=== PATIENT | male | born 1990 | race Two or more races ===

== ENCOUNTER 2018-03-24 19:30 | Emergency (ER) | payer OTHER ==
[~2018-03-24] VITALS: Ht 185.4 cm; Wt 117.9 kg
[2018-03-24 19:45] VITALS: BP 135/73
== END 2018-03-24 23:35 | disposition left against medical advice (07) ==
LOC: ER 19:30
DX: M54.9 Dorsalgia, unspecified (principal); Z53.21 Procedure and treatment not carried out due to patient leaving prior to being seen by health care provider

== ENCOUNTER 2019-04-06 14:37 | Emergency (ER) | payer OTHER ==
[~2019-04-06] VITALS: Ht 185.4 cm; Wt 122.5 kg
[2019-04-06 14:58] VITALS: BP 154/66
== END 2019-04-06 17:10 | disposition left against medical advice (07) ==
LOC: ER 14:37
DX: S93.401A Sprain of unspecified ligament of right ankle, initial encounter (principal); R03.0 Elevated blood-pressure reading, without diagnosis of hypertension; Z90.89 Acquired absence of other organs; W22.8XXA Striking against or struck by other objects, initial encounter; Y93.89 Activity, other specified; Y99.8 Other external cause status; Y92.89 Other specified places as the place of occurrence of the external cause
CPT/HCPCS: 73610

== ENCOUNTER 2019-04-08 10:29 | Emergency (ER) | payer OTHER ==
[~2019-04-08] VITALS: Ht 185.4 cm; Wt 122.5 kg
[2019-04-08 10:56] VITALS: BP 118/58
[2019-04-08] MEDS ORDERED: cefTRIAXone SOD 1,000 MG VL IM ONE (12:00)
== END 2019-04-08 12:25 | disposition home or self-care (01) ==
LOC: ER 10:29
DX: J22 Unspecified acute lower respiratory infection (principal); R51 Headache
CPT/HCPCS: 71046; 96372; 99283; J0696

== ENCOUNTER 2019-06-02 10:11 | Emergency (ER) | payer OTHER ==
[~2019-06-02] VITALS: Ht 185.4 cm; Wt 122.5 kg
[2019-06-02 10:19] VITALS: BP 138/73
[2019-06-02] MEDS: methylPREDNISolone SOD SUCC 125 MG/2 ML VL IM ONE (11:59)
[2019-06-02] MEDS: KETOROLAC TROMETH 60MG/2ML VIAL IM ONE (11:59)
== END 2019-06-02 12:16 | disposition home or self-care (01) ==
LOC: ER 10:18
DX: M62.830 Muscle spasm of back (principal)
CPT/HCPCS: 96372; 99283; J1885; J2930